=== PATIENT | male | born 1980 ===

== ENCOUNTER 2020-11-04 14:48 | Emergency (ER) | payer BC, OTHER ==
[2020-11-04] MEDS ORDERED: KETOROLAC 30MG VIAL (30MG/ML) ONE (15:26)
[2020-11-04] MEDS ORDERED: CYCLOBENZAPRINE HCL 10 MG TABLET ONE (15:26)
[2020-11-04 15:37] LABS: BASOPHILS % (AUTO) 0.5 % (0.0-5.0); EOSINOPHILS % (AUTO) 2.1 % (0.0-8.0); HEMATOCRIT 45.3 % (42-54); LYMPHOCYTES % (AUTO) 34.1 % (21.0-51.0); MEAN CORPUSCULAR HEMOGLOBIN 31.4 pg (27.0-33.0); MEAN CORPUSCULAR HGB CONC 35.3 g/dL (32.0-36.0); MONOCYTES % (AUTO) 8.9 % (3.0-13.0); NEUTROPHILS % (AUTO) 53.4 % (40.0-77.0); PLATELET COUNT (AUTO) 219 K/uL (130-400); RED BLOOD CELL COUNT(AUTO) 5.09 MIL/uL (4.50-6.20); RED CELL DISTRIBUTION WIDTH 12.3 % (11.0-15.5); WHITE BLOOD COUNT (AUTO) 7.7 K/uL (4.8-10.8)
[2020-11-04 15:52] LABS: INR 1.01 (0.85-1.15); POTASSIUM 3.8 mmol/L (3.5-5.1)
[2020-11-04 15:54] LABS: PARTIAL THROMBOPLASTIN TIME 27.7 SEC (26.3-35.5)
[2020-11-04 15:56] LABS: ALBUMIN 4.7 g/dL (3.5-5.0); BILIRUBIN,TOTAL 0.4 mg/dL (0.2-1.0); TOTAL PROTEIN, SERUM 8.9 g/dL (6.0-8.3)
[2020-11-04] MEDS ORDERED: BENZONATATE 100 MG CAPSULE PO ONE (16:21)
== END 2020-11-04 17:45 | disposition home or self-care (01) ==
LOC: EDH 14:48
DX: M94.0 Chondrocostal junction syndrome [Tietze] (principal); R07.89 Other chest pain; Z20.822 Contact with and (suspected) exposure to COVID-19
CPT/HCPCS: 36415; 71045; 80053; 82550; 83690; 84484; 85025; 85378; 85610; 85730; 87426; 87804 ×2; 93005; 96361; 96374; 99285; J1885; J7030; U0003